=== PATIENT | female | born 1995 | race African-American/Black ===

== ENCOUNTER 2017-04-26 10:15 | Emergency (ER) | payer OTHER ==
[2017-04-26 10:43] LABS: Bilirubin Negative (Negative); Blood, Urine Trace (Negative); Clarity Clear (Clear); Glucose, Urine (Dipstick) Negative (Negative); Leukocyte Trace (Negative); Nitrite Negative (Negative); Protein, Urine (Dipstick) Negative (Neg-Trace)
[2017-04-26 10:48] LABS: Bacteria/HPF None Seen HPF (None Seen); RBC/HPF 0-3 HPF (0-3); Squamous Epithelial 0-3 HPF (0-3); WBC/HPF 0-3 HPF (0-3)
[2017-04-26 10:49] LABS: Pregnancy Test - Urine (BHCG) Negative (Negative); Pregu Control Background? CLEAR/WHITE (CLR/WHITE); Pregu Control Bar Appear? YES (CONTROL BAR)
[2017-04-26] MEDS ORDERED: cefTRIAXone\\ROCEPHIN 500 MG VIAL ONE (10:53)
[2017-04-26] MEDS ORDERED: Azithromycin 250 MG TAB ONE (10:53)
[2017-04-26] MEDS ORDERED: Lidocaine 1% 20 ML MDV ONE (10:53)
[2017-04-29 01:05] LABS: Chlamydia by PCR DETECTED (NotDetected); GC by PCR Not Detected (NotDetected)
== END 2017-04-26 11:02 | disposition home or self-care (01) ==
LOC: BURERS 10:15
DX: N72 Inflammatory disease of cervix uteri (principal)
CPT/HCPCS: 81003; 81015; 81025; 87480; 87491; 87510; 87591; 87660; 96372; J0696; J2001

== ENCOUNTER 2022-04-15 11:45 | Emergency (ER) | payer OTHER ==
[2022-04-15] MEDS ORDERED: Ibuprofen 800 MG TAB ONE (12:22)
== END 2022-04-15 13:38 | disposition home or self-care (01) ==
LOC: BURERS 11:45
DX: B34.9 Viral infection, unspecified (principal)
CPT/HCPCS: 87081; 87430; 87804